=== PATIENT | female | born 1930 | race Caucasian/White ===

== ENCOUNTER 2021-01-08 05:42 | Inpatient (IN) | payer MEDICARE ==
[~2021-01-08] VITALS: Ht 167.6 cm; Wt 66.7 kg
[~2021-01-08 05:42] MED LIST: FOLI1TAB32 PO; LEVO112T4 PO; METH25VI62 IM; METH4TAB PO; MULT-6 PO; VENL75CA PO
--- NOTE | 2021-01-08 05:48 | NUR ---
PT BIBA FROM [facility] FOR ABDOMINAL PAIN SINCE YESTERDAY, PT STATES THAT SHE HAD A PAIN IN HER RIGHT LOWER ABDOMEN AND FELT LIKE SHE NEEDED TO PASS GAS BUT COULDNT QUITE GET IT THROUGH, PT WENT TO [facility] AND THEY DID A CT SCAN THERE AND THE CT SHOWED SMALL BOWEL OBSTRUCTION, PT GIVEN 4 OF MORPHINE AT [facility] AND PRESENTS WITH A 20G IV IN HER LEFT AC, PT HAS A NOTICEBLE LUMP IN HER RIGHT LOWER ABDOMEN THAT IS PAINFUL UPON PALPATION
--- NOTE | 2021-01-08 05:50 | NUR ---
ER AT BEDSIDE
--- NOTE | 2021-01-08 07:15 | NUR ---
report from Roland DARBY. pt resting in bed.
[2021-01-08] MEDS ORDERED: ONDANSETRON 2MG/ML, 2ML ONE ×2 (08:28→14:08)
[2021-01-08] MEDS ORDERED: MORPHINE SULFATE 4 MG/ML, 1ML ONE (08:28)
[2021-01-08] MEDS ORDERED: MORPHINE SULFATE 4 MG/ML, 1ML IVPush ONE (08:30)
[2021-01-08] MEDS ORDERED: ONDANSETRON ODT 4 MG PO PRN (08:30)
[2021-01-08] MEDS ORDERED: ONDANSETRON 2MG/ML, 2ML IVPush PRN ×2 (08:30→14:30)
[2021-01-08] MEDS: LACTATED RINGERS 1,000 ML IV SCH ×2 (08:30→18:42)
[2021-01-08] MEDS ORDERED: ONDANSETRON 2MG/ML, 2ML IVPush ONE ×2 (08:30)
[2021-01-08] MEDS ORDERED: SENNA/DOCUSATE TABLET PO PRN (08:30)
[2021-01-08] MEDS ORDERED: morphine SULFATE 10 MG/ML, 1ML IVPush PRN ×2 (08:30→14:30)
[2021-01-08] MEDS ORDERED: ACETAMINOPHEN 325 MG TABLET PO PRN ×2 (08:30→14:30)
[2021-01-08] MEDS ORDERED: MORPHINE SULFATE 4 MG/ML, 1ML IVPush PRN (08:30)
[2021-01-08] MEDS ORDERED: POLYETHYLENE GLYCOL 17 GM PACKET PO PRN (08:30)
--- NOTE | 2021-01-08 08:46 | NUR ---
PER MD SIMMONS NO NG TUBE AT THIS TIME
--- NOTE | 2021-01-08 10:57 | NUR ---
Report called to Nora ballard
[2021-01-08 11:56] VITALS: BP 137/80
[2021-01-08] MEDS ORDERED: LEVO100T5 PO (12:17)
[2021-01-08] MEDS ORDERED: BUPIVACAINE/PF 0.5% ONE (12:20)
[2021-01-08] MEDS ORDERED: EPINEPHRINE 1 MG/ML, 1ML ONE (12:20)
[2021-01-08] MEDS ORDERED: methylPREDNISolone SOD SUCC 125 MG/2 ML ONE (12:31)
[2021-01-08] MEDS ORDERED: FENTANYL PF 250 MCG/5ML ONE (12:33)
[2021-01-08] MEDS ORDERED: CEFAZOLIN 1,000 MG ONE (12:36)
[2021-01-08] MEDS ORDERED: ROCURONIUM 10MG/ML,5ML ONE (12:36)
[2021-01-08] MEDS ORDERED: PROPOFOL 10 MG/ML, 20ML ONE (12:36)
[2021-01-08] MEDS ORDERED: SUGAMMADEX 200 MG/2 ML IVPush ONE (14:08)
[2021-01-08] MEDS ORDERED: EPHEDRINE 50 MG/ML, 1ML IVPush PRN (14:30)
[2021-01-08] MEDS ORDERED: FENTANYL PF 100 MCG/2ML IV PRN (14:30)
[2021-01-08] MEDS ORDERED: ALBUTEROL SULFATE 2.5 MG/3 ML NPPB PRN (14:30)
[2021-01-08] MEDS ORDERED: PROMETHAZINE 25 MG/ML, 1ML IVPush PRN (14:30)
[2021-01-08] MEDS ORDERED: DIPHENHYDRAMINE 50 MG/ML, 1ML IVPush PRN ×2 (14:30)
[2021-01-08] MEDS ORDERED: hydrALAzine 20 MG/ML, 1ML IV PRN (14:30)
[2021-01-08] MEDS ORDERED: OXYcodone 5 MG/5 ML ORAL.SOL UDC PO PRN (14:30)
[2021-01-08] MEDS ORDERED: LABETALOL 5MG/ML, 20ML IV PRN (14:30)
[2021-01-08] MEDS ORDERED: MEPERIDINE/PF 25MG/0.5ML IVPush PRN (14:30)
[2021-01-08] MEDS ORDERED: PROMETHAZINE 12.5 MG SUPP PR PRN (14:30)
[2021-01-08] MEDS ORDERED: MEPERIDINE/PF 25MG/ML,1ML ONE (14:43)
[2021-01-08 15:30] VITALS: BP 101/53
[2021-01-08 15:43] VITALS: BP 137/80
[2021-01-08 19:55] VITALS: BP 98/59
[2021-01-09 00:18] VITALS: BP 97/54
[2021-01-09 05:21] LABS: MEAN CORPUSCULAR HEMOGLOBIN 33.2 pg (27.0-34.8); MEAN PLATELET VOLUME 8.9 fL (7.4-10.4); PLATELET COUNT 248 x10^3/uL (130-400); RED BLOOD COUNT 3.18 x10^6/uL (3.82-5.3); RED CELL DISTRIBUTION WIDTH 13.6 % (9.6-15.2)
[2021-01-09] MEDS: LACTATED RINGERS 1,000 ML IV SCH ×2 (05:28→15:10)
[2021-01-09 05:38] LABS: ALANINE AMINOTRANSFERASE 24 U/L (12-78); ALBUMIN 2.1 g/dL (3.4-5.0); ALKALINE PHOSPHATASE 69 U/L (45-117); BILIRUBIN,TOTAL 0.5 mg/dL (0.2-1.0); CALCIUM 7.8 mg/dL (8.5-10.1); CREATININE 0.46 mg/dL (0.55-1.02); TOTAL PROTEIN 5.8 g/dL (6.4-8.2)
[2021-01-09 05:48] LABS: ANION GAP 4 mmol/L (5-15); CHLORIDE 109 mmol/L (98-107)
[2021-01-09 06:01] LABS: BAND#(MANUAL) 1.06 x10^3/uL; BANDS%(MANUAL) 8 % (0-7); LYMPHS% (MANUAL) 9 % (22-44); MONOS% (MANUAL) 9 % (2-9); SEG#(MANUAL) 9.84 x10^3/uL (1.8-6.8); SEGS% (MANUAL) 74 % (42-75)
[2021-01-09 06:02] LABS: <PLATELET ESTIMATE> ADEQUATE; <PLT MORPHOLOGY> NORMAL PLT MORPH; <RBC MORPHOLOGY> NORMAL
[2021-01-09] MEDS: HYDROcodone/APAP 5/325 TABLET PO PRN ×2 (06:47→15:14)
[2021-01-09 08:00] VITALS: BP 98/61
[2021-01-09 13:15] VITALS: BP 105/68
[2021-01-09] MEDS ORDERED: ONDA4TAB7 PO (16:32)
[2021-01-09] MEDS ORDERED: HYDR-2214 PO (16:32)
== END 2021-01-09 17:38 | disposition home or self-care (01) | DRG 350 ==
LOC: ED 08:56 → EDIP 10:30 → 4NE 11:34
PROVIDERS: ADMIT Family Medicine; ATTEND Family Medicine
PROC: 0WJG4ZZ Inspection of Peritoneal Cavity, Percutaneous Endoscopic Approach (ICD-10-PCS; 2021-01-08)
PROC: 0YU70JZ Supplement Right Femoral Region with Synthetic Substitute, Open Approach (ICD-10-PCS; principal; 2021-01-08 12:30)
DX: K41.30 Unilateral femoral hernia, with obstruction, without gangrene, not specified as recurrent (principal); E43 Unspecified severe protein-calorie malnutrition; K40.00 Bilateral inguinal hernia, with obstruction, without gangrene, not specified as recurrent; J96.11 Chronic respiratory failure with hypoxia; F39 Unspecified mood [affective] disorder; J47.9 Bronchiectasis, uncomplicated; M06.9 Rheumatoid arthritis, unspecified; K57.30 Diverticulosis of large intestine without perforation or abscess without bleeding; K66.0 Peritoneal adhesions (postprocedural) (postinfection); Z86.16 Personal history of COVID-19; Z20.822 Contact with and (suspected) exposure to COVID-19; Z90.10 Acquired absence of unspecified breast and nipple; Z85.3 Personal history of malignant neoplasm of breast; Z90.49 Acquired absence of other specified parts of digestive tract; Z88.8 Allergy status to other drugs, medicaments and biological substances; Z68.23 Body mass index [BMI] 23.0-23.9, adult; Z80.3 Family history of malignant neoplasm of breast; Z82.49 Family history of ischemic heart disease and other diseases of the circulatory system
CPT/HCPCS: 36415; 74021; 80053; 83605; 85025; 87635; 88302; 96374; 96375; G0378; J0171; J0690; J2175; J2405; J2704; J3010; C1781; J2270; J2930; J7120